=== PATIENT | male | born 1990 | race Hispanic/Latino ===

== ENCOUNTER 2019-02-11 10:37 | Emergency (ER) | payer OTHER ==
[2019-02-11] MEDS ORDERED: KETOROLAC TROMETHAMINE 60 MG/2 ML VIAL ONE (12:04)
[2019-02-11] MEDS ORDERED: DIAZEPAM 5 MG TABLET ONE (12:04)
[2019-02-11] MEDS ORDERED: LIDOCAINE 5% TOPICAL PATCH TP ONE (12:04)
== END 2019-02-11 13:11 | disposition home or self-care (01) ==
LOC: EDH 10:37
DX: M54.5 Low back pain (principal); K21.9 Gastro-esophageal reflux disease without esophagitis; Z87.891 Personal history of nicotine dependence
CPT/HCPCS: 96372; 99283; J1885